=== PATIENT | male | born 1950 | race African-American/Black ===

== ENCOUNTER 2017-09-25 11:36 | Emergency (ER) | payer OTHER, BC ==
[2017-09-25 12:09] VITALS: BP 165/93
[2017-09-25] MEDS ORDERED: ALBUTEROL SULFATE HFA (90 MCG/PUFF) 8 GM MDI (1 MDI/ER DISP) IH ONE (13:07)
--- NOTE | 2017-09-25 13:08 | ER Document Report ---
ED General - General Chief Complaint: High Blood Pressure Stated Complaint: BLOOD PRESSURE ISSUES Time Seen by Provider: 09/25/17 12:48 TRAVEL OUTSIDE OF THE [place] IN LAST 30 DAYS: No - HPI Patient complains to provider of: Elevated blood pressure Notes: Patient coming in for elevated blood pressure. Patient states he has been taking [id number] cough cold medication because of some sinus pressure and also due to a cough. Patient states he has taken DayQuil and NyQuil. Patient states he noticed this morning that his blood pressure has been elevated. Patient denies any fever chills nausea vomiting diarrhea chest pain headaches dizziness or weakness. Patient resting comfortably upon my evaluation states compliance with his other pressure medications - Related Data Allergies/Adverse Reactions: No Known Allergies Allergy (Verified 09/25/17 11:38) Past Medical History - Social History Smoking Status: Current Every Day Smoker Frequency of alcohol use: Social Drug Abuse: Marijuana Family History: Reviewed & Not Pertinent Patient has suicidal ideation: No Patient has homicidal ideation: No - Past Medical History Cardiac Medical History: Reports: Hx Heart Attack - Drug induced, Hx Hypercholesterolemia, Hx Hypertension Renal/ Medical History: Denies: Hx Peritoneal Dialysis - Immunizations Hx Diphtheria, Pertussis, Tetanus Vaccination: - unknown Review of Systems - Review of Systems Constitutional: Other - Hypertension EENT: No symptoms reported Cardiovascular: No symptoms reported Respiratory: No symptoms reported Gastrointestinal: No symptoms reported Genitourinary: No symptoms reported Male Genitourinary: No symptoms reported Musculoskeletal: No symptoms reported Skin: No symptoms reported Hematologic/Lymphatic: No symptoms reported Neurological/Psychological: No symptoms reported -: Yes All other systems reviewed and negative Physical Exam - Vital signs Vitals: Temp Pulse Resp BP Pulse Ox 98.7 F 60 20 165/93 H 94 09/25/17 12:08 09/25/17 12:08 09/25/17 12:08 09/25/17 12:08 09/25/17 12:08 Interpretation: Hypertensive - General General appearance: Appears well, Alert - HEENT Head: Normocephalic, Atraumatic Eyes: Normal Pupils: PERRL - Respiratory Respiratory status: No respiratory distress Chest status: Nontender Breath sounds: Wheezing Chest palpation: Normal - Cardiovascular Rhythm: Regular Heart sounds: Normal auscultation Murmur: No - Abdominal Inspection: Normal Distension: No distension Bowel sounds: Normal Tenderness: Nontender Organomegaly: No organomegaly - Back Back: Normal, Nontender - Extremities General upper extremity: Normal inspection, Nontender, Normal color, Normal ROM , Normal temperature General lower extremity: Normal inspection, Nontender, Normal color, Normal ROM , Normal temperature, Normal weight bearing. No: Kati's sign - Neurological Neuro grossly intact: Yes Cognition: Normal Orientation: AAOx4 [place] Coma Scale Eye Opening: Spontaneous [place] Coma Scale Verbal: Oriented Yudy Coma Scale Motor: Obeys Commands Yudy Coma Scale Total: 15 Speech: Normal Motor strength normal: LUE, RUE, LLE, RLE Sensory: Normal - Psychological Associated symptoms: Normal affect, Normal mood - Skin Skin Temperature: Warm Skin Moisture: Dry Skin Color: Normal Course - Re-evaluation Re-evalutation: 09/25/17 15:18 Patient coming in for evaluation of elevated blood pressure recently trying over -the-counter cough cold medications for sinus symptoms and cough. Patient examination slightly wheezy does state he smokes daily. Recommend patient stop smoking for his cough. Also recommend patient try honey also give patient a prescription for Coricidin HBP patient was also given a inhaler here. No obvious respiratory distress. Patient was to remain compliant with his medications. Patient discharged home. - Vital Signs Vital signs: Temp Pulse Resp BP Pulse Ox 98.7 F 60 20 165/93 H 94 09/25/17 12:08 09/25/17 12:08 09/25/17 12:08 09/25/17 12:08 09/25/17 12:08 Discharge - Discharge Clinical Impression: Hypertension Qualifiers: Hypertension type: essential hypertension Qualified Code(s): I10 - Essential ( primary) hypertension Disposition: HOME, SELF-CARE Instructions: High Blood Pressure ([facility]) Additional Instructions: Please be aware that many cough cold medications we will have an adverse effect on her blood pressure causing to go higher. I would recommend using honey for your cough he may also take Coricidin HBP as directed [id number]. I would highly recommend to stop smoking. Return to ER symptoms worsen. Prescriptions: Dm/Acetaminophen/Doxylamine [Coricidin Hbp Cold-Multi Sympt] 5 - 10 ml PO Q6 PRN #1 PRN Reason: Referrals: KEVIN SUMMERS MD [NO LOCAL MD] - Follow up in 3-5 days
== END 2017-09-25 13:21 | disposition home or self-care (01) ==
LOC: ER 11:36
DX: I10 Essential (primary) hypertension (principal); R05 Cough; R06.2 Wheezing; J34.89 Other specified disorders of nose and nasal sinuses; F17.200 Nicotine dependence, unspecified, uncomplicated; F12.10 Cannabis abuse, uncomplicated; I25.2 Old myocardial infarction; Z79.899 Other long term (current) drug therapy
CPT/HCPCS: 99283; J3490

== ENCOUNTER 2018-10-22 09:00 | Observation (INO) | payer OTHER, BC, MEDICARE ==
--- NOTE | 2018-10-22 09:19 | ER Document Report ---
ED Medical Screen (RME) - General Chief Complaint: High Blood Pressure Stated Complaint: BLOOD PRESSURE PROBLEMS Time Seen by Provider: 10/22/18 09:07 Notes: Patient is a 68-year-old male with history of hypertension who presents to the emergency department with a chief complaint of elevated blood pressure. Patient states that over the past few days he has noticed that his blood pressure has been higher than normal. Patient reports he did take it at home this morning and it was 197/93. Patient reports he does take his metoprolol as prescribed and did take 200 mg this morning around 6 AM. Patient states this is been ongoing for a few days. Patient states he has had intermittent blurred vision. Patient denies use of blood thinners. Patient states that on Tuesday he did have pain that was located in the center of his chest that radiated to the right side. Patient reports that it felt like a soreness "like when you work your muscles too hard." States that he had the chest discomfort about 2 days. Patient also reports having intermittent leg swelling. Patient does smoke 1.5 packs of cigarettes per day. TRAVEL OUTSIDE OF THE [place] IN LAST 30 DAYS: No - Related Data Allergies/Adverse Reactions: No Known Allergies Allergy (Verified 10/22/18 09:01) Past Medical History - Past Medical History Cardiac Medical History: Reports: Hx Heart Attack - Drug induced, Hx Hypercholesterolemia, Hx Hypertension Renal/ Medical History: Denies: Hx Peritoneal Dialysis - Immunizations Hx Diphtheria, Pertussis, Tetanus Vaccination: - unknown Physical Exam - Vital signs Vitals: Temp Pulse Resp BP Pulse Ox 98.4 F 63 16 190/89 H 98 10/22/18 09:04 10/22/18 09:04 10/22/18 09:04 10/22/18 09:04 10/22/18 09:04 - Respiratory Respiratory status: No respiratory distress Chest status: Nontender Breath sounds: Normal Chest palpation: Normal - Cardiovascular Rhythm: Regular Heart sounds: Normal auscultation, S1 appreciated, S2 appreciated Course - Re-evaluation Re-evalutation: 10/22/18 09:17 Patient is nontoxic-appearing in triage and in no acute distress. I have greeted and performed a rapid initial assessment of this patient. A comprehensive ED assessment and evaluation of the patient, analysis of test results and completion of the medical decision making process will be conducted by additional ED providers. - Vital Signs Vital signs: Temp Pulse Resp BP Pulse Ox 98.4 F 63 16 190/89 H 98 10/22/18 09:04 10/22/18 09:04 10/22/18 09:04 10/22/18 09:04 10/22/18 09:04
[2018-10-22 09:46] LABS: ABSOLUTE BASOPHILS # (AUTO) 0.1 10^3/uL (0.0-0.2); ABSOLUTE EOSINOPHILS # (AUTO) 0.2 10^3/uL (0.0-0.6); ABSOLUTE LYMPHOCYTES (AUTO) 1.9 10^3/uL (0.5-4.7); ABSOLUTE MONOCYTES (AUTO) 0.4 10^3/uL (0.1-1.4); ABSOLUTE NEUT (AUTO) 4.1 10^3/uL (1.7-8.2); BASOPHILS % (AUTO) 0.9 % (0-2); EOSINOPHILS % (AUTO) 3.3 % (0-6); HEMOGLOBIN 13.9 g/dL (13.5-17.0); LYMPHOCYTES % (AUTO) 28.7 % (13-45); MEAN CORPUSCULAR HEMOGLOBIN 30.2 pg (27.0-33.4); MEAN CORPUSCULAR HGB CONC 33.1 g/dL (32.0-36.0); MEAN CORPUSCULAR VOLUME 91 fl (80-97); MONOCYTES % (AUTO) 5.3 % (3-13); PLATELET COUNT 303 10^3/uL (150-450); RED CELL DISTRIBUTION WIDTH 12.5 % (11.5-14.0); SEGMENTED NEUTROPHILS % (AUTO) 61.8 % (42-78); TOTAL CELLS COUNTED % (AUTO) 100 %; WHITE BLOOD COUNT 6.6 10^3/uL (4.0-10.5)
[2018-10-22 10:08] LABS: ALBUMIN 4.2 g/dL (3.5-5.0); ALKALINE PHOSPHATASE 72 U/L (38-126); ANION GAP 8 (5-19); ASPARTATE AMINO TRANSFERASE 28 U/L (17-59); BILIRUBIN,DIRECT 0.1 mg/dL (0.0-0.4); BILIRUBIN,TOTAL 1.3 mg/dL (0.2-1.3); BLOOD UREA NITROGEN 12 mg/dL (7-20); CARBON DIOXIDE 29 mmol/L (22-30); CHLORIDE 103 mmol/L (98-107); GLUCOSE 167 mg/dL (75-110); POTASSIUM 3.9 mmol/L (3.6-5.0); TOTAL PROTEIN 6.7 g/dL (6.3-8.2)
--- NOTE | 2018-10-22 10:08 | RADIOLOGY REPORT (SQ) ---
EXAM DESCRIPTION: CHEST 2 VIEWS COMPLETED DATE/TIME: 10/22/2018 10:00 am REASON FOR STUDY: elevated bp, intermittent cp COMPARISON: None. EXAM PARAMETERS: NUMBER OF VIEWS: two views TECHNIQUE: Digital Frontal and Lateral radiographic views of the chest acquired. RADIATION DOSE: NA LIMITATIONS: none FINDINGS: LUNGS AND PLEURA: No opacities, masses or pneumothorax. No pleural effusion. MEDIASTINUM AND HILAR STRUCTURES: No masses or contour abnormalities. HEART AND VASCULAR STRUCTURES: Heart normal size. No evidence for failure. BONES: No acute findings. HARDWARE: None in the chest. OTHER: No other significant finding. IMPRESSION: NO ACUTE RADIOGRAPHIC FINDING IN THE CHEST. TECHNICAL DOCUMENTATION: JOB ID: [id number] [employer]- All Rights Reserved Reading location - IP/workstation name: [email or web address]
--- NOTE | 2018-10-22 10:15 | ER Document Report ---
ED Blood Pressure Problem - General Chief Complaint: High Blood Pressure Stated Complaint: BLOOD PRESSURE PROBLEMS Time Seen by Provider: 10/22/18 09:07 Primary Care Provider: KEVIN SUMMERS MD [Primary Care Provider] - Follow up as needed TRAVEL OUTSIDE OF THE [place] IN LAST 30 DAYS: No - HPI Notes: Patient is a 68-year-old male that presents to the emergency department for chi ef complaint of hypertension. Patient reports history of hypertension but has been having elevated pressures over the weekend despite taking medication as prescribed. He takes metoprolol 200 mg every morning and 100 mg every afternoon. He did take his metoprolol this morning. Patient states this morning his home blood pressure was 197/100. Patient does report last and Tuesday he had 2 episodes of chest pain which she describes as a heaviness that was substernal and radiated into his right neck and right shoulder. The pain lasted for a few hours and then resolved. He had no associated shortness of breath diaphoresis nausea or vomiting. Patient also reports he has been seeing "floaters" and some blurriness in his vision intermittently over the last few days as well. He denies any vision changes or chest pain currently. He denies any known aggravating factors to his chest pain or vision changes. He denies being on any blood thinning medication. He denies any focal numbness, weakness or difficulty speaking. He does state that he had a mild headache yesterday for 3 or 4 hours that was diffuse and bilateral. Currently he does not have a headache. 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 Past Medical History: Hypertension, hyperlipidemia Past Surgical History: Reviewed in chart Social History: Daily tobacco. Denies alcohol use. Remote history of cocaine use Family History: Reviewed and noncontributory for presenting illness Allergies: Reviewed, see documented allergy list. REVIEW OF SYSTEMS: CONSTITUTIONAL : No fever No chills No diaphoresis No recent illness EENT: vision changes No congestion No sore throat CARDIOVASCULAR: chest pain No palpitations RESPIRATORY: No shortness of breath No cough No difficulty breathing GASTROINTESTINAL: No abdominal pain No nausea No vomiting No diarrhea GENITOURINARY: No dysuria No hematuria No difficulty urinating MUSCULOSKELETAL: No back pain No leg pain No arm pain SKIN: No rashes No lesions LYMPHATIC: No swollen, enlarged glands. NEUROLOGICAL: No lightheadedness headache No weakness No paresthesias PSYCHIATRIC: No anxiety No depression PHYSICAL EXAMINATION: Vital signs reviewed, nursing noted reviewed. GENERAL: Well-appearing, well-nourished and in no acute distress. HEAD: Atraumatic, normocephalic. EYES: Eyes appear normal, extraocular movements intact, sclera anicteric, conjunctiva are normal. ENT: nares patent, oropharynx clear without exudates. Moist mucous membranes. NECK: Normal range of motion, supple without lymphadenopathy LUNGS: Breath sounds clear to auscultation bilaterally and equal. No wheezes rales or rhonchi. HEART: Regular rate and rhythm without murmurs ABDOMEN: Soft, nontender, normoactive bowel sounds. No rebound, guarding, or rigidity. No masses appreciated. EXTREMITIES: Nontender, good range of motion, no pitting or edema. NEUROLOGICAL: No focal neurological deficits. Moves all extremities spontaneously Motor and sensory grossly intact on exam. PSYCH: Normal mood, normal affect. SKIN: Warm, Dry, normal turgor, no rashes or lesions noted on exposed skin - Related Data Allergies/Adverse Reactions: No Known Allergies Allergy (Verified 10/22/18 09:01) Past Medical History - Social History Smoking Status: Current Every Day Smoker Chew tobacco use (# tins/day): No Frequency of alcohol use: Occasional Drug Abuse: Marijuana Family History: Reviewed & Not Pertinent Patient has suicidal ideation: No Patient has homicidal ideation: No - Past Medical History Cardiac Medical History: Reports: Hx Heart Attack - Drug induced, Hx Hypercholesterolemia, Hx Hypertension Renal/ Medical History: Denies: Hx Peritoneal Dialysis - Immunizations Hx Diphtheria, Pertussis, Tetanus Vaccination: - unknown Physical Exam - Vital signs Vitals: Temp Pulse Resp BP Pulse Ox 98.4 F 63 16 190/89 H 98 10/22/18 09:04 10/22/18 09:04 10/22/18 09:04 10/22/18 09:04 10/22/18 09:04 Course - Re-evaluation Re-evalutation: 10/22/18 10:13 Vitals reviewed. Nursing notes reviewed. Patient's initial EKG showed T wave inversions concerning for ischemia secondary to his hypertension. Repeat EKG at 20 minutes later was unchanged and he has no developing STEMI. Patient is currently chest pain-free. His blood pressure at this point is 164/88 which is improved from his presenting blood pressure. Since his blood pressure is improving on its own BP medications will be held while BP is being monitored. Cardiac evaluation has been ordered and is pending. 10/22/18 11:27 Patient's work-up is relatively unremarkable. He has a mild elevation of his glucose. His troponin is normal. Patient has not had any telemetry events or recurrence of chest pain. He has new changes on EKG and recent chest pain and a feel this patient would benefit from telemetry monitoring and further cardiac evaluation including likely stress test. At this point I recommend admission for further testing. Patient in agreement with plan of care. Care discussed with Dr. Barrientos who has accepted admission. Laboratory 10/22/18 10/22/18 10/22/18 09:35 09:35 09:35 WBC 6.6 RBC 4.60 Hgb 13.9 Hct 42.0 MCV 91 MCH 30.2 MCHC 33.1 RDW 12.5 Plt Count 303 Seg Neutrophils % 61.8 Lymphocytes % 28.7 Monocytes % 5.3 Eosinophils % 3.3 Basophils % 0.9 Absolute Neutrophils 4.1 Absolute Lymphocytes 1.9 Absolute Monocytes 0.4 Absolute Eosinophils 0.2 Absolute Basophils 0.1 Sodium 140.3 Potassium 3.9 Chloride 103 Carbon Dioxide 29 Anion Gap 8 BUN 12 Creatinine 0.94 Est GFR ( Amer) > 60 Est GFR (Non-Af Amer) > 60 Glucose 167 H Calcium 9.0 Total Bilirubin 1.3 Direct Bilirubin 0.1 Neonat Total Bilirubin Not Reportable Neonat Direct Bilirubin Not Reportable Neonat Indirect Bili Not Reportable AST 28 ALT 32 Alkaline Phosphatase 72 Troponin I < 0.012 Total Protein 6.7 Albumin 4.2 Chest X-Ray 10/22/18 09:13 IMPRESSION: NO ACUTE RADIOGRAPHIC FINDING IN THE CHEST. Head CT 10/22/18 10:14 IMPRESSION: NORMAL BRAIN CT WITHOUT CONTRAST. EVIDENCE OF ACUTE STROKE: NO. - Vital Signs Vital signs: Temp Pulse Resp BP Pulse Ox 98.4 F 63 16 190/89 H 98 10/22/18 09:04 10/22/18 09:04 10/22/18 09:04 10/22/18 09:04 10/22/18 09:04 - Laboratory Result Diagrams: 10/22/18 09:35 10/22/18 09:35 Laboratory results interpreted by me: 10/22/18 09:35 Glucose 167 H - EKG Interpretation by Me Additional EKG results interpreted by me: 10/22/18 10:13 Interpreted by myself 0933: Normal sinus rhythm, rate 60, left axis, no STEMI, no ectopy, diffuse T wave abnormalities 0953: Normal sinus rhythm, rate 58, left axis, no STEMI, diffuse T wave abnormalities, unchanged from initial EKG Discharge - Discharge Clinical Impression: Uncontrolled hypertension, Abnormal EKG, Blurry vision, bilateral Chest pain Qualifiers: Chest pain type: unspecified Qualified Code(s): R07.9 - Chest pain, unspecified Headache Qualifiers: Headache type: unspecified Headache chronicity pattern: acute headache Intractability: not intractable Qualified Code(s): R51 - Headache Condition: Stable Disposition: ADMITTED OBSERVATION Admitting Provider: Iliana (Hospitalist) Unit Admitted: Telemetry Referrals: KEVIN SUMMERS MD [Primary Care Provider] - Follow up as needed
--- NOTE | 2018-10-22 10:39 | RADIOLOGY REPORT (SQ) ---
EXAM DESCRIPTION: CT HEAD WITHOUT COMPLETED DATE/TIME: 10/22/2018 10:28 am REASON FOR STUDY: Blurry vision, headache COMPARISON: None. TECHNIQUE: Axial images acquired through the brain without intravenous contrast. Images reviewed wi th bone, brain and subdural windows. Additional sagittal and coronal reconstructions were generated. Images stored on PACS. All CT scanners at this facility use dose modulation, iterative reconstruction, and/or weight based d osing when appropriate to reduce radiation dose to as low as reasonably achievable (ALARA). [facility]: Dose Right [facility]: CareDose [facility]: Dose Right [facility]: Teradose 4D [facility]: [employer] RADIATION DOSE: CT Rad equipment meets quality standard of care and radiation dose reduction techniq ues were employed. CTDIvol: 53.2 mGy. DLP: 1017 mGy-cm. mGy. LIMITATIONS: None. FINDINGS: VENTRICLES: Normal size and contour. CEREBRUM: No masses. No hemorrhage. No midline shift. No evidence for acute infarction. Normal gra y/white matter differentiation. No areas of low density in the white matter. CEREBELLUM: No masses. No hemorrhage. No alteration of density. No evidence for acute infarction. EXTRAAXIAL SPACES: No fluid collections. No masses. ORBITS AND GLOBE: No intra- or extraconal masses. Normal contour of globe without masses. CALVARIUM: No fracture. PARANASAL SINUSES: No fluid or mucosal thickening. SOFT TISSUES: No mass or hematoma. OTHER: No other significant finding. IMPRESSION: NORMAL BRAIN CT WITHOUT CONTRAST. EVIDENCE OF ACUTE STROKE: NO. COMMENT: Quality ID # [id number]: Final reports with documentation of one or more dose reduction techniques (e.g., Automated exposure control, adjustment of the mA and/or kV according to patient size, use of iterative reconstruction technique) TECHNICAL DOCUMENTATION: JOB ID: [id number] [employer]- All Rights Reserved Reading location - IP/workstation name: [email or web address]
[2018-10-22] MEDS ORDERED: ASPIRIN 81 MG TABLET, CHEWABLE PO ONE (11:28)
--- NOTE | 2018-10-22 11:42 | EKG REPORT ---
SEVERITY:- ABNORMAL ECG - SINUS RHYTHM LEFT AXIS DEVIATION NONSPECIFIC T ABNORMALITIES, DIFFUSE LEADS : Confirmed by: Bobbi Latham 22-Oct-2018 11:42:23
[2018-10-22] MEDS ORDERED: HYDRALAZINE HCL INJ/PF 20 MG/1 ML SDV IV PRN (12:05)
--- NOTE | 2018-10-22 12:30 | PDOC H&P ---
History of Present Illness Admission Date/PCP: 10/22/18 11:36 KEVIN SUMMERS MD Patient complains of: blurry vision History of Present Illness: KATHY DUEÑAS is a 68 year old male with a past medical history of hypertension and hyperlipidemia and chronic smoking. 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 Patient is presenting with elevated blood pressures and blurring of vision. He says that he has been compliant with his antihypertensives at home but on has noticed that his blood pressures have been running into 190/1 100s. He says that this was associated with on and off blurry vision. He denies headache, unilateral weakness, sensory deficit or numbness. He says that he also had intermittent midsternal chest pain. He denies shortness of breath. He is currently chest pain-free and says that he has resolved. He says that his blood pressure again this morning at home was 190/100. He smokes 1.5 pack/day and drinks 3-4 bottles of beer a day. Denies significant cardiac history in the family. Past Medical History Cardiac Medical History: Reports: Myocardial Infarction - Drug induced, Hyperlipidema, Hypertension Social History Smoking Status: Current Every Day Smoker Family History Family History: Reviewed & Not Pertinent Parental Family History Reviewed: Yes - No premature CAD Children Family History Reviewed: No Sibling(s) Family History Reviewed.: No Medication/Allergy Home Medications: Metoprolol Tartrate [Lopressor 100 mg Tablet] 100 mg PO TID 10/22/18 Simvastatin [Zocor 40 mg Tablet] 40 mg PO DAILY 10/22/18 Allergies/Adverse Reactions: No Known Allergies Allergy (Verified 10/22/18 09:01) Review of Systems All systems: reviewed and no additional remarkable complaints except as stated - As mentioned in HPI Physical Exam Vital Signs: Temp Pulse Resp BP Pulse Ox 98.4 F 63 16 190/89 H 98 10/22/18 09:04 10/22/18 09:04 10/22/18 09:04 10/22/18 09:04 10/22/18 09:04 Intake & Output 10/21/18 10/22/18 10/23/18 06:59 06:59 06:59 Weight 187 lb 6.287 oz General appearance: PRESENT: no acute distress, well-developed, well-nourished Head exam: PRESENT: atraumatic, normocephalic Eye exam: PRESENT: conjunctiva pink, EOMI, PERRLA. ABSENT: scleral icterus Ear exam: PRESENT: normal external ear exam Mouth exam: PRESENT: moist, tongue midline Neck exam: ABSENT: carotid bruit, JVD, lymphadenopathy, thyromegaly Respiratory exam: PRESENT: clear to auscultation lisa. ABSENT: rales, rhonchi, wheezes Cardiovascular exam: PRESENT: RRR. ABSENT: diastolic murmur, rubs, systolic murmur Pulses: PRESENT: normal dorsalis pedis pul GI/Abdominal exam: PRESENT: normal bowel sounds, soft. ABSENT: distended, guarding, mass, organolmegaly, rebound, tenderness Rectal exam: PRESENT: deferred Extremities exam: PRESENT: full ROM. ABSENT: calf tenderness, clubbing, pedal edema Neurological exam: PRESENT: alert, awake, oriented to person, oriented to place, oriented to time, oriented to situation, CN II-XII grossly intact. ABSENT: motor sensory deficit Results Laboratory Results: 10/22/18 09:35 10/22/18 09:35 10/22/18 10/22/18 09:35 09:35 WBC 6.6 RBC 4.60 Hgb 13.9 Hct 42.0 MCV 91 MCH 30.2 MCHC 33.1 RDW 12.5 Plt Count 303 Seg Neutrophils % 61.8 Lymphocytes % 28.7 Monocytes % 5.3 Eosinophils % 3.3 Basophils % 0.9 Absolute Neutrophils 4.1 Absolute Lymphocytes 1.9 Absolute Monocytes 0.4 Absolute Eosinophils 0.2 Absolute Basophils 0.1 Sodium 140.3 Potassium 3.9 Chloride 103 Carbon Dioxide 29 Anion Gap 8 BUN 12 Creatinine 0.94 Est GFR ( Amer) > 60 Est GFR (Non-Af Amer) > 60 Glucose 167 H Calcium 9.0 Total Bilirubin 1.3 AST 28 Alkaline Phosphatase 72 Total Protein 6.7 Albumin 4.2 10/22/18 09:35 Troponin I < 0.012 Impressions: Chest X-Ray 10/22/18 09:13 IMPRESSION: NO ACUTE RADIOGRAPHIC FINDING IN THE CHEST. Head CT 10/22/18 10:14 IMPRESSION: NORMAL BRAIN CT WITHOUT CONTRAST. EVIDENCE OF ACUTE STROKE: NO. Assessment and Plan - Diagnosis (1) Hypertensive urgency Is this a current diagnosis for this admission?: Yes Plan: Blood pressure in the ER was 190/90. Will resume patient's oral home medications. We will add losartan. Chest blood pressure medications appropriately. He currently denies having any blurry vision or chest pain at this time. (2) Atypical chest pain Is this a current diagnosis for this admission?: Yes Plan: He does have new EKG changes particularly T wave depressions on inferior lateral leads compared to his previous EKG. Troponin is been negative. Will schedule for stress testing tomorrow. (3) Hyperlipidemia Is this a current diagnosis for this admission?: Yes Plan: Resume statin. (4) Tobacco abuse counseling Is this a current diagnosis for this admission?: Yes Plan: Counseled on smoking cessation. (5) Alcohol abuse Is this a current diagnosis for this admission?: Yes Plan: Counseled on drinking cessation. - Time Time Spent with patient: 25-34 minutes
--- NOTE | 2018-10-22 12:32 | ADVANCED CARE ---
- Diagnosis (1) Hypertensive urgency Diagnosis Current: Yes (2) Atypical chest pain Diagnosis Current: Yes (3) Hyperlipidemia Diagnosis Current: Yes Resuscitation Status: Full Code Discussion: Discussed with patient. He says he is a full code and prefers to get chest compressions, defibrillation or mechanical ventilation if the need arises. He says that his , Amanda Lopez is his surrogate medical decision maker.
[2018-10-22] MEDS: LOSARTAN POTASSIUM 50 MG TABLET PO SCH (13:36)
[2018-10-22] MEDS: METOPROLOL TARTRATE 100 MG TABLET PO SCH ×2 (14:54→21:14)
[2018-10-22] MEDS: HEPARIN SOD (PORCINE) 5,000 UNIT/ML 1 ML VIAL SUBCUT SCH (21:23)
[2018-10-22] MEDS ORDERED: SIMVASTATIN 40 MG TABLET PO SCH (22:00)
[2018-10-23] MEDS: METOPROLOL TARTRATE 100 MG TABLET PO SCH ×2 (05:47→16:25)
--- NOTE | 2018-10-23 08:03 | EKG REPORT ---
SEVERITY:- ABNORMAL ECG - SINUS RHYTHM LEFT AXIS DEVIATION NONSPECIFIC T ABNORMALITIES, DIFFUSE LEADS : Confirmed on behalf of: Bobbi Latham 23-Oct-2018 08:02:59
[2018-10-23] MEDS ORDERED: ASPIRIN 81 MG TABLET, CHEWABLE PO SCH (10:00)
[2018-10-23] MEDS: LOSARTAN POTASSIUM 50 MG TABLET PO SCH (11:36)
[2018-10-23] MEDS: HEPARIN SOD (PORCINE) 5,000 UNIT/ML 1 ML VIAL SUBCUT SCH (11:36)
--- NOTE | 2018-10-23 16:18 | PDOC DISCHARGE SUMMARY ---
General - Admit/Disc Date/PCP Admission Date/Primary Care Provider: 10/22/18 11:36 KEVIN SUMMERS MD Discharge Date: 10/23/18 - Discharge Diagnosis (1) Hypertensive urgency Is this a current diagnosis for this admission?: Yes (2) Atypical chest pain Is this a current diagnosis for this admission?: Yes (3) Hyperlipidemia Is this a current diagnosis for this admission?: Yes - Additional Information Resuscitation Status: Full Code Prescriptions: Losartan Potassium [Cozaar 100 mg Tablet] 100 mg PO DAILY #30 tablet Home Medications: Aspirin [Ecotrin 81 mg EC Tablet] 81 mg PO DAILY 10/22/18 Metoprolol Tartrate [Lopressor 100 mg Tablet] 100 mg PO QHS 10/22/18 Metoprolol Tartrate [Lopressor 100 mg Tablet] 200 mg PO QAM 10/22/18 Simvastatin [Zocor 40 mg Tablet] 60 mg PO QHS 10/22/18 Losartan Potassium [Cozaar 100 mg Tablet] 100 mg PO DAILY #30 tablet 10/23/18 History of Present Illness History of Present Illness: KATHY DUEÑAS is a 68 year old male with a past medical history of hypertension and hyperlipidemia and chronic smoking. 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 Patient is presenting with elevated blood pressures and blurring of vision. He says that he has been compliant with his antihypertensives at home but on has noticed that his blood pressures have been running into 190/1 100s. He says that this was associated with on and off blurry vision. He denies headache, unilateral weakness, sensory deficit or numbness. He says that he also had intermittent midsternal chest pain. He denies shortness of breath. He is currently chest pain-free and says that he has resolved. He says that his blood pressure again this morning at home was 190/100. He smokes 1.5 pack/day and drinks 3-4 bottles of beer a day. Denies significant cardiac history in the family. Hospital Course Hospital Course: Patient was admitted for hypertensive urgency and atypical chest pain. He was already symptom-free upon admission with no recurrence of symptoms throughout this hospital course. He was resumed on his Lopressor. Losartan was also added to his regimen. His troponins have all been negative. He did go for stress testing which came back normal. He will be discharged on Lopressor and losartan. His upcoming follow-up with his PCP to assess his blood pressure control. Physical Exam Vital Signs: Temp Pulse Resp BP Pulse Ox 98.3 F 82 20 180/79 H 98 10/23/18 12:06 10/23/18 14:48 10/23/18 12:06 10/23/18 12:06 10/23/18 12:06 Intake & Output 10/22/18 10/23/18 10/24/18 06:59 06:59 06:59 Intake Total 240 240 Balance 240 240 Weight 182 lb 1.629 oz General appearance: PRESENT: no acute distress, well-developed, well-nourished Head exam: PRESENT: atraumatic, normocephalic Eye exam: PRESENT: conjunctiva pink, EOMI, PERRLA. ABSENT: scleral icterus Ear exam: PRESENT: normal external ear exam Mouth exam: PRESENT: moist, tongue midline Neck exam: ABSENT: carotid bruit, JVD, lymphadenopathy, thyromegaly Respiratory exam: PRESENT: clear to auscultation lisa. ABSENT: rales, rhonchi, wheezes Cardiovascular exam: PRESENT: RRR. ABSENT: diastolic murmur, rubs, systolic murmur Pulses: PRESENT: normal dorsalis pedis pul GI/Abdominal exam: PRESENT: normal bowel sounds, soft. ABSENT: distended, guarding, mass, organolmegaly, rebound, tenderness Rectal exam: PRESENT: deferred Extremities exam: PRESENT: full ROM. ABSENT: calf tenderness, clubbing, pedal edema Neurological exam: PRESENT: alert, awake, oriented to person, oriented to place, oriented to time, oriented to situation, CN II-XII grossly intact. ABSENT: m otor sensory deficit Results Laboratory Results: 10/22/18 09:35 10/22/18 09:35 10/22/18 10/22/18 10/22/18 09:35 15:45 21:50 Troponin I < 0.012 < 0.012 < 0.012 Impressions: Chest X-Ray 10/22/18 09:13 IMPRESSION: NO ACUTE RADIOGRAPHIC FINDING IN THE CHEST. Head CT 10/22/18 10:14 IMPRESSION: NORMAL BRAIN CT WITHOUT CONTRAST. EVIDENCE OF ACUTE STROKE: NO. Qualifiers - * PATIENT BEING DISCHARGED WITH ANY OF THE FOLLOWING DIAGNOSIS: No Acute Heart Failure - Is this a Heart Failure Patient?: No LVEF < 40%?: No- if no continue to question #3 3. Anticoagulant therapy for permanect/persistent/paraoxysmal Afib or Aflutter: N/A
[2018-10-23] MEDS ORDERED: REGADENOSON INJ 0.4 MG/5 ML DISP.SYRIN IV ONE (16:32)
[2018-10-23 17:00] VITALS: BP 167/84
[2018-10-23] MEDS ORDERED: LOSARTAN POTASSIUM 50 MG TABLET PO ONE (17:00)
--- NOTE | 2018-10-29 00:56 | DRAGON STRESS TEST REPORT ---
Intravenous Lexiscan Cardiolite stress test using single photon emmision computerized tomography. Date of procedure: 10/23/2018.Ordering Provider: Dr. Lacho Oliveira. Patient's status: NCAT patient. Indication: Chest pain. Coronary risk factors: Age, hypertension, dyslipidemia, tobacco abuse disorder, and family history of coronary artery disease. Resting EKG: Sinus Rhythm. Nonspecific T changes inferolateral leads. Poor R wave leads V1 to V6. Stress EKG: No changes of ischemia. The patient has no chest pain or discomfort, and there were no arrhythmias seen. Reason for termination: Protocol. Conclusions: Normal EKG and hemodynamic response to IV Lexiscan. Nuclear data: At rest the patient was given 12.42 millicuries of technetium 99m sestamibi injected intravenously. As per protocol rest non gated SPECT images were obtained. Subsequently the patient was given intravenous Lexiscan at a dose of 0.4 mg in 5 mL intravenously, followed by flush with normal saline. Subsequently the stress dose of 36.9 millicuries of technetium 99m sestamibi was injected intravenously. As per protocol stress gated images were obtained. Nuclear interpretation: Review of images showed that all segments of the myocardium had normal perfusion at rest, and normal perfusion post stress with IV Lexiscan. All segments of the myocardium had normal motion, contraction, and thickening by gated study. T. I D. ratio was normal at 0.99. There is no transient ischemic dilatation of the left ventricle. Computer read rest, and stress left ventricular ejection fraction were 55 %, and 56 %, respectively. Conclusion: 1. There is no scintigraphic evidence of Lexiscan induced myocardial ischemia. 2. There is no scintigraphic evidence of myocardial infarction/scar. Recommendations: Aggressive risk factor modification, and treating the underlying co- morbidities. MTDD
== END 2018-10-23 17:40 | disposition home or self-care (01) ==
LOC: ER 09:00 → EH 11:36 → 5 14:35
PROVIDERS: ADMIT Internal Medicine; ATTEND Internal Medicine
DX: I16.0 Hypertensive urgency (principal); R07.89 Other chest pain; E78.5 Hyperlipidemia, unspecified; F17.210 Nicotine dependence, cigarettes, uncomplicated; F10.10 Alcohol abuse, uncomplicated; F19.10 Other psychoactive substance abuse, uncomplicated; H53.8 Other visual disturbances; R94.31 Abnormal electrocardiogram [ECG] [EKG]; I25.2 Old myocardial infarction; Z79.899 Other long term (current) drug therapy; Z79.82 Long term (current) use of aspirin
CPT/HCPCS: 93005 ×2; 99285; 36415; 85025; 80053; 84484; 93017; 71046; 78452; 70450; 93010; G0378 ×3; A9500; J2785; J1644; J0360; J3490; Q9969

== ENCOUNTER 2019-12-22 08:55 | Emergency (ER) | payer BC, MEDICARE, OTHER ==
--- NOTE | 2019-12-22 10:56 | ER Document Report ---
ED General - General Chief Complaint: Vertigo Stated Complaint: LIGHTHEADED,DIZZINESS Time Seen by Provider: 12/22/19 10:15 Primary Care Provider: KEVIN SUMMERS MD [Primary Care Provider] - Follow up as needed Mode of Arrival: Ambulatory Information source: Patient Notes: 69-year-old man complaining of dizziness after an episode last night which he had to pull his car off the road because of feeling like he was off balance and the car lights were causing him difficulties. He compared symptoms to feeling like he was on a cruise ship. He denies any prior history of similar episodes. He denies congestion or fever or ear pain. He also denies a history of vertigo in the past. He states that he called for a ride after about 45 minutes he improved. This morning he awoke feeling well and was about to go for a drive when he began to feel the symptoms again. Feeling off balance and dizzy. He denies a spinning in the room he does complain of some posterior tightening in his neck area. Last night during the episode he felt that his heart was racing and his blood pressure was noted to be elevated in the 185/100 range. Today the blood pressure was in the 140s over 80. Presently he states that he is feeling close to normal. He is a smoker approximately a pack and a half of cigarettes per day, denies known history of CAD or cerebrovascular disease. TRAVEL OUTSIDE OF THE [place] IN LAST 30 DAYS: No - Related Data Allergies/Adverse Reactions: No Known Allergies Allergy (Verified 10/22/18 09:01) Home Medications: Metoprolol. simvastatin. losartin Past Medical History - Social History Smoking Status: Current Every Day Smoker Chew tobacco use (# tins/day): No Frequency of alcohol use: None Drug Abuse: Marijuana Family History: Reviewed & Not Pertinent - Past Medical History Cardiac Medical History: Reports: Hx Heart Attack - Drug induced, Hx H ypercholesterolemia, Hx Hypertension Renal/ Medical History: Denies: Hx Peritoneal Dialysis - Immunizations Hx Diphtheria, Pertussis, Tetanus Vaccination: - unknown Review of Systems - Review of Systems Notes: Constitutional: Negative for fever. HENT: Negative for sore throat. Eyes: Negative for visual changes. Cardiovascular: Negative for chest pain. Respiratory: Negative for shortness of breath. Gastrointestinal: Negative for abdominal pain, vomiting or diarrhea. Genitourinary: Negative for dysuria. Musculoskeletal: Negative for back pain. Skin: Negative for rash. Neurological: + Dizziness 10 point ROS negative except as marked above and in HPI. Physical Exam - Vital signs Vitals: Pulse Resp BP Pulse Ox 82 16 187/65 H 96 12/22/19 08:56 12/22/19 08:56 12/22/19 08:56 12/22/19 08:56 - Notes Notes: PHYSICAL EXAMINATION: Physical Exam: General: Well-nourished well-developed 69-year-old male in no acute distress HEENT: NC/AT, pupils equal round and reactive to light, MM moist,nares clear, oropharynx clear, airway patent Neck: supple, no adenopathy, no masses. Good range of motion Lungs: clear, no wheezing, no rales no rhonchi CVS: Regular rate and rhythm no murmur gallop or rub Abdomen: Soft, active, nontender, no masses, no hepatosplenomegaly Ext: No edema, clubbing or cyanosis. Neuro: Alert and responsive, moving all 4 extremities on command, cranial nerves intact, no focal findings Skin: Intact no open lesions, no rash Course - Re-evaluation Re-evalutation: 12/22/19 12:28 Patient presenting with vertigo-like symptoms, motion sickness with increased symptoms while driving last evening. He has had a second episode this morning. During the exam I was unable to provoke the dizziness with positional change or with position on the bed. Negative nystagmus and negative CT of the head and electrolyte balance. Patient will get given a course of meclizine, and encouraged him to follow-up with his primary physician or to return to the emergency department if the symptoms are worsening in any form. Patient voices understanding of this plan and will be discharged home. - Vital Signs Vital signs: Temp Pulse Resp BP Pulse Ox 98.4 F 77 20 164/94 H 95 12/22/19 09:02 12/22/19 09:02 12/22/19 13:03 12/22/19 13:03 12/22/19 13:03 - Laboratory Result Diagrams: 12/22/19 10:00 12/22/19 10:00 Laboratory results interpreted by me: 12/22/19 12/22/19 10:00 10:00 Carbon Dioxide 32 H Urine Protein 100 H Urine Blood SMALL H Urine Urobilinogen 4.0 H - Diagnostic Test Radiology reviewed: Image reviewed, Reports reviewed Radiology results interpreted by me: 12/22/19 12:27 Chest x-ray: No acute cardiopulmonary disease, mild interstitial changes CT head: No acute intracranial findings. - EKG Interpretation by Me Rate: Normal - EKG interpreted by Dr. Ellison: Normal sinus rhythm, rate 72, QT 424 ms, HI interval 208 ms, left axis deviation, nonspecific T wave abnormality, inferior leads., no acute ST or T wave abnormalities, no ischemic findings, compared to previous EKG dated 10/22/2018, left anterior fascicular block is new. Discharge - Discharge Clinical Impression: Dizziness, Vertigo Condition: Good Disposition: HOME, SELF-CARE Instructions: Dizziness ([facility]), Meclizine ([facility]), Vertigo ([facility]) Additional Instructions: You are seen in the emergency department today with history of episodic dizzi ness. You are given meclizine to use for the symptoms. Please take that medication as prescribed and follow-up with your doctor if needed. If your symptoms are worsening or if you have other concerns you may return to the emergency department for a reevaluation. HOME CARE INSTRUCTIONS & INFORMATION: Thank you for choosing us for your medical needs. We hope you're satisfied with the care you received. After you leave, you must properly care for your problem and, at the same time, observe i ts progress. Any condition can change. Some illnesses can change rapidly over hours or days. If your condition worsens, return to the Emergency Department or see your physician promptly. ABOUT YOUR X-RAYS AND EKG'S: If you had an EKG or X-rays taken, they have been read by the Emergency Physician. The X-rays and EKG's will also be read by a Radiologist or Top Stop Attacher within 24 hours. If discrepancies are noted, you will be notified by telephone. Please be certain the ED has a correct telephone number & address where you can be reached. Also, realize that some fractures or abnormalities do not show up on initial X-rays. If your symptoms continue, see your physician. ABOUT YOUR LABORATORY TEST: If you had laboratory tests, the results have been reviewed by the Emergency Physician. Some test results (for example cultures) may not be available for several days. You will be contacted if any test result shows you need additional treatment. Please be certain the ED has a correct telephone number and address where you can be reached. ABOUT YOUR MEDICATIONS: You will receive instructions on how to take your medicine on the prescription label you receive. Additional information may be provided by the Pharmacy. If you have questions afterwards, call the ED for clarification or further instructions. Some prescribed medications may cause drowsiness. Do not perform tasks such as driving a car or operating machinery without consulting your Pharmacist. If you feel you need a refill of pain medication, your condition will need re-evaluation. Please do not call for a refill of any medication. ABOUT YOUR SIGNATURE: Signature of this document acknowledges to followin. Understanding that you received emergency treatment and that you may be released before al medical problems are known or treated. Please be certain the ED has a correct phone number & address where you can be reached. 2. Acknowledgement that you will arrange for follow-up care as recommended. 3. Authorization for the Emergency Physician to provide information to your follow-up Physician in order to maximize your care. AT ANY TIME, IF YOUR SYMPTOMS CHANGE SIGNIFICANTLY OR WORSEN OR YOU DEVELOP NEW SYMPTOMS, RETURN TO THE EMERGENCY DEPARTMENT IMMEDIATELY FOR RE-EVALUATION. OUR GOAL IS TO PROVIDE EXCELLENT MEDICAL CARE! WE HOPE THAT WE HAVE MET YOUR EXPECTATIONS DURING YOUR EMERGENCY DEPARTMENT VISIT AND THAT YOU FEEL YOU HAVE RECEIVED EXCELLENT CARE! Prescriptions: Meclizine HCl [Antivert 25 mg Tablet] 25 mg PO TID PRN #21 tablet PRN Reason: Forms: Return to Work Referrals: KEVIN SUMMERS MD [Primary Care Provider] - Follow up as needed
[2019-12-22 11:40] LABS: ABSOLUTE EOSINOPHILS # (AUTO) 0.2 10^3/uL (0.0-0.6); ABSOLUTE LYMPHOCYTES (AUTO) 1.7 10^3/uL (0.5-4.7); ABSOLUTE MONOCYTES (AUTO) 0.5 10^3/uL (0.1-1.4); ABSOLUTE NEUT (AUTO) 3.9 10^3/uL (1.7-8.2); BASOPHILS % (AUTO) 0.6 % (0-2); EOSINOPHILS % (AUTO) 2.6 % (0-6); HEMATOCRIT 39.9 % (37.9-51.0); HEMOGLOBIN 13.7 g/dL (13.5-17.0); LYMPHOCYTES % (AUTO) 27.2 % (13-45); MEAN CORPUSCULAR HEMOGLOBIN 31.2 pg (27.0-33.4); MEAN CORPUSCULAR HGB CONC 34.3 g/dL (32.0-36.0); MEAN CORPUSCULAR VOLUME 91 fl (80-97); MONOCYTES % (AUTO) 8.2 % (3-13); PLATELET COUNT 320 10^3/uL (150-450); RED BLOOD COUNT 4.38 10^6/uL (4.35-5.55); RED CELL DISTRIBUTION WIDTH 12.4 % (11.5-14.0); SEGMENTED NEUTROPHILS % (AUTO) 61.4 % (42-78); TOTAL CELLS COUNTED % (AUTO) 100 %; WHITE BLOOD COUNT 6.4 10^3/uL (4.0-10.5)
[2019-12-22 11:46] LABS: ALBUMIN 3.8 g/dL (3.5-5.0); ALKALINE PHOSPHATASE 72 U/L (38-126); ANION GAP 5 (5-19); ASPARTATE AMINO TRANSFERASE 30 U/L (17-59); BILIRUBIN,DIRECT 0.4 mg/dL (0.0-0.4); BILIRUBIN,TOTAL 1.3 mg/dL (0.2-1.3); BLOOD UREA NITROGEN 12 mg/dL (7-20); CALCIUM 9.1 mg/dL (8.4-10.2); CARBON DIOXIDE 32 mmol/L (22-30); CHLORIDE 105 mmol/L (98-107); GLUCOSE 106 mg/dL (75-110); POTASSIUM 4.4 mmol/L (3.6-5.0); TOTAL PROTEIN 6.4 g/dL (6.3-8.2)
[2019-12-22 11:55] LABS: APPEARANCE,URINE CLEAR; BILIRUBIN,URINE NEGATIVE (NEGATIVE); COLOR,URINE YELLOW; GLUCOSE, URINE NEGATIVE (NEGATIVE); KETONES,URINE NEGATIVE (NEGATIVE); PROTEIN,URINE 100 mg/dL (NEGATIVE); URINE SPECIFIC GRAVITY 1.021
--- NOTE | 2019-12-22 12:01 | RADIOLOGY REPORT (SQ) ---
EXAM DESCRIPTION: CT HEAD WITHOUT IMAGES COMPLETED DATE/TIME: 12/22/2019 11:13 am REASON FOR STUDY: Dizziness COMPARISON: None currently available . TECHNIQUE: Axial images acquired through the brain without intravenous contrast. Images reviewed wi th bone, brain and subdural windows. Additional sagittal and coronal reconstructions were generated. Images stored on PACS. All CT scanners at this facility use dose modulation, iterative reconstruction, and/or weight based d osing when appropriate to reduce radiation dose to as low as reasonably achievable (ALARA). [facility]: Dose Right [facility]: CareDose [facility]: Dose Right [facility]: Teradose 4D [facility]: Smart Codementor RADIATION DOSE: CT Rad equipment meets quality standard of care and radiation dose reduction techniq ues were employed. CTDIvol: 53.2 mGy. DLP: 991 mGy-cm. mGy. LIMITATIONS: None. FINDINGS: VENTRICLES: Normal size and contour. CEREBRUM: No masses. No hemorrhage. No midline shift. No evidence for acute infarction. Mild spott y bifrontal and biparietal age-appropriate chronic small vessel ischemic change CEREBELLUM: No masses. No hemorrhage. No alteration of density. No evidence for acute infarction. EXTRAAXIAL SPACES: No fluid collections. No masses. ORBITS AND GLOBE: No intra- or extraconal masses. Normal contour of globe without masses. CALVARIUM: No fracture. PARANASAL SINUSES: No fluid or mucosal thickening. SOFT TISSUES: No mass or hematoma. OTHER: No other significant finding. IMPRESSION: Mild chronic white matter disease. No acute findings. EVIDENCE OF ACUTE STROKE: NO. COMMENT: Quality ID # [id number]: Final reports with documentation of one or more dose reduction techniques (e.g., Automated exposure control, adjustment of the mA and/or kV according to patient size, use of iterative reconstruction technique) TECHNICAL DOCUMENTATION: JOB ID: [id number] 2010 [email or web address]- All Rights Reserved Reading location - IP/workstation name: [id number]
--- NOTE | 2019-12-22 12:29 | RADIOLOGY REPORT (SQ) ---
EXAM DESCRIPTION: CHEST SINGLE VIEW IMAGES COMPLETED DATE/TIME: 12/22/2019 11:23 am REASON FOR STUDY: Dizziness COMPARISON: Chest films 10/22/2018 EXAM PARAMETERS: NUMBER OF VIEWS: One view. TECHNIQUE: Single frontal radiographic view of the chest acquired. RADIATION DOSE: NA LIMITATIONS: None. FINDINGS: LUNGS AND PLEURA: No opacities, masses or pneumothorax. No pleural effusion. MEDIASTINUM AND HILAR STRUCTURES: No masses. Contour normal. HEART AND VASCULAR STRUCTURES: Heart normal in size. Normal vasculature. BONES: No acute findings. HARDWARE: None in the chest. OTHER: No other significant finding. IMPRESSION: NO ACUTE RADIOGRAPHIC FINDING IN THE CHEST. TECHNICAL DOCUMENTATION: JOB ID: [id number] 2010 [employer]- All Rights Reserved Reading location - IP/workstation name: [id number]
[2019-12-22 13:42] VITALS: BP 164/94
--- NOTE | 2019-12-23 16:34 | EKG REPORT ---
SEVERITY:- ABNORMAL ECG - SINUS RHYTHM LEFT ANTERIOR FASCICULAR BLOCK NONSPECIFIC T ABNORMALITIES, INFERIOR LEADS : Confirmed by: Bobbi Latham 23-Dec-2019 16:33:52
== END 2019-12-22 14:15 | disposition home or self-care (01) ==
LOC: ER 08:55
DX: R42 Dizziness and giddiness (principal); I44.4 Left anterior fascicular block; F17.210 Nicotine dependence, cigarettes, uncomplicated; F12.10 Cannabis abuse, uncomplicated; I10 Essential (primary) hypertension; I25.2 Old myocardial infarction; E78.00 Pure hypercholesterolemia, unspecified; Z79.899 Other long term (current) drug therapy
CPT/HCPCS: 36415; 70450; 71045; 80053; 81001; 84484; 85025; 93005; 93010; 99285